=== PATIENT | male | born 1995 | race Caucasian/White ===

== ENCOUNTER 2022-02-27 04:53 | Emergency (ER) | payer OTHER ==
[2022-02-27] MEDS: Lidocaine 1% with EPINEPHrine 1:100,000 10 ML MDV INJECT ONE (05:30)
[2022-02-27] MEDS: Lidocaine 1% with EPINEPHrine 1:100,000 10 ML MDV ONE (05:55)
== END 2022-02-27 06:41 ==
LOC: KA.ED 04:53
DX: S01.01XA Laceration without foreign body of scalp, initial encounter (principal); V48.5XXA Car driver injured in noncollision transport accident in traffic accident, initial encounter; Y92.410 Unspecified street and highway as the place of occurrence of the external cause
CPT/HCPCS: 12002; 70450; 73090-LT; 99284